=== PATIENT | male | born 1965 ===

== ENCOUNTER 2025-09-07 06:00 | Day surgery (SDC) | payer OTHER ==
[2025-08-30 12:33] VITALS: BP 160/92
[~2025-09-07] VITALS: Ht 175.3 cm; Wt 111.6 kg
[~2025-09-07 06:00] MED LIST: AMLODIPINE BESY10 MG PO; COZAAR100 MG PO; LABETALOL HCL100 MG PO; LASIX20 MG PO; SIMVASTATIN10 MG PO
[2025-09-07] MEDS ORDERED: POVIDONE-IODINE 118 ML BOTT TOP ONE (07:57)
[2025-09-07] MEDS ORDERED: CIPROFLOXACIN IN 5 % DEXTROSE 400 MG/200 ML PIGGYBAG IV ONE (07:57)
[2025-09-07] MEDS ORDERED: CEFAZOLIN SODIUM 1,000 MG VIAL ONE (07:58)
[2025-09-07] MEDS ORDERED: LIDOCAINE HCL 1%/EPINEPHRINE 20ML VIAL IJ ONE (08:00)
[2025-09-07] MEDS ORDERED: EPINEPHRINE HCL/PF 1 MG/ML AMPUL ONE (08:00)
[2025-09-07] MEDS ORDERED: CIPROFLOXACIN2.5 ML OTIC (12:58)
[2025-09-07] MEDS ORDERED: CEPHALEXIN500 M1 PO (12:58)
== END 2025-09-07 15:05 | disposition home or self-care (01) ==
LOC: CIR.AMB 06:00
PROVIDERS: ATTEND Otolaryngology Otology & Neurotology
DX: H72.11 Attic perforation of tympanic membrane, right ear (principal); H71.21 Cholesteatoma of mastoid, right ear